=== PATIENT | male | born 1985 | race Caucasian/White ===

== ENCOUNTER 2019-11-29 06:09 | Emergency (ER) | payer SELFPAY ==
[~2019-11-29] VITALS: Ht 172.7 cm; Wt 87.0 kg
[2019-11-29] MEDS ORDERED: SODIUM CHLORIDE FLUSH 10ML SYR IVF ONE (06:30)
--- NOTE | 2019-11-29 06:35 | NUR ---
THIS IS A 34 YO MALE BIB [facility] FOR "HEROIN, HE WAS INJECTED WITH SOMETHING BUT WE DON'T KNOW WHAT IT IS WAS, WE WERE DRINKING". PATIENT HAS SLURRED SPEECH, UNABLE TO AMBULATE. PRESENT TO FRONT LOBBY IN WHEELCHAIR THAT [facility]RI[facility]DS PUT PATIENT IN, UNABLE TO OPEN EYES FULLY. [facility] REPORT "SEIZURE LIKE ACTIVITY" AT HOUSE. PATIENT WHEELED STRIAGHT BACK TO ROOM WITH SECURITY TO ASSIST. PATIENT MOVED TO [facility] TO ROOM AT THIS TIME. PATIENT IS ALERT AND ORIENTED TO PERSON ONLY. ABLE TO ANSWER SOME QUESTIONS APPROPRIATELY. PUPILS ARE PINPOINT, PATIENT ADMITS TO USING HEROIN, METHAMPHETAMINE, TAKING XANAX, DRINKING ALCOHOL, AND PER [facility]RIEN[facility] "HE WAS INJECTED WITH SOMETHING". DENIES LOC, DENIES HITTING HEAD OR ANY TRAUMA, DENIES PAIN. ALL MONITORING IN PLACE, PATIENT NSR ON MONITOR. PIV PLACED, LABS DRAWN. VSS. PATINT STATING "I HAVE TO GET OUT OF HERE, I HAVE TO GO SEE MY KID" REPEATEDLY. PATIENT REORIENTED TO SITUATION AND NEEDS TO STAY UNTIL ABLE TO WALK AND LABS RESULTED. PATIENT STATES "I CAN REFUSE YOUR TREATMENT ANY TIME". THIS RN STATES PATIENT HAS TO WAIT UNTIL IT IS SAFE TO DISCHARGE WITH STEADY GAIT. PATIENT COMPLIANT AT THIS TIME
[2019-11-29 06:42] LABS: BASOPHILS # (AUTO) 0.03 x10^3/uL (0-0.1); BASOPHILS % (AUTO) 0 % (0-1); EOSINOPHILS % (AUTO) 2 % (1-7); LYMPHOCYTES # (AUTO) 2.59 x10^3/uL (1-3.4); LYMPHOCYTES % (AUTO) 28 % (22-44); MD NO; MEAN CORPUSCULAR HEMOGLOBIN 30.3 pg (27.5-34.5); MEAN CORPUSCULAR HGB CONC 33.2 g/dL (33.2-36.2); MEAN CORPUSCULAR VOLUME 91.2 fL (81-97); MEAN PLATELET VOLUME 7.1 fL (7.4-10.4); MONOCYTES % (AUTO) 11 % (2-9); NEUTROPHILS # (AUTO) 5.38 x10^3/uL (1.8-6.8); NEUTROPHILS % (AUTO) 59 % (42-75); PLATELET COUNT 460 x10^3/uL (130-400); RED BLOOD COUNT 4.66 x10^6/uL (4.38-5.82); RED CELL DISTRIBUTION WIDTH 13.6 % (9.4-14.8)
[2019-11-29 06:51] LABS: ALBUMIN 3.3 g/dL (3.4-5.0); ANION GAP 5 mmol/L (5-15); CALCIUM 8.5 mg/dL (8.5-10.1); CHLORIDE 108 mmol/L (98-107); CREATININE 0.98 mg/dL (0.7-1.3)
--- NOTE | 2019-11-29 06:58 | NUR ---
REPORT GIVEN TO JOSEY JIMENEZ. PLAN OF CARE DISCUSSED. LABS PENDING
[2019-11-29 08:09] VITALS: BP 134/93
[2019-11-29] MEDS ORDERED: NALOXONE 0.4 MG/ML, 1ML ONE (08:21)
[2019-11-29] MEDS ORDERED: NALOXONE 0.4 MG/ML, 1ML IVPush ONE (08:30)
== END 2019-11-29 09:37 | disposition home or self-care (01) ==
LOC: ED 09:09
DX: F11.121 Opioid abuse with intoxication delirium (principal); R94.31 Abnormal electrocardiogram [ECG] [EKG]
CPT/HCPCS: 36415; 80048; 82040; 85025; 93005; 99284; J2310